=== PATIENT | male | born 1980 | race Caucasian/White ===

== ENCOUNTER 2021-03-18 09:12 | Emergency (ER) | payer BC ==
[~2021-03-18] VITALS: Ht 198.1 cm; Wt 109.1 kg
[2021-03-18 09:24] VITALS: TEMP 98.7
[2021-03-18 11:20] VITALS: BP 141/92; PULSE 83
[2021-03-18] MEDS ORDERED: ZOFRAN ODT4 MG PO (11:20)
== END 2021-03-18 11:25 | disposition home or self-care (01) ==
LOC: COL.ER 09:12 → EDBD 09:12 → COL.ER 11:25
DX: U07.1 COVID-19 (principal)
CPT/HCPCS: J1885

== ENCOUNTER → 2021-07-20 | Outpatient (CLI) | payer BC ==
[~2021-07-20] MED LIST: ZOFRAN ODT4 MG PO
[2021-07-20 17:46] LABS: MEAN CELL VOLUME 91 fl (80.0-100.0); MEAN CORPUSCULAR HGB CONC 31 g/dl (33.0-37.0); MEAN PLATELET VOLUME 10.3 fl (7.4-10.4); PLATELET COUNT 569 K/mm3 (130-400); RED BLOOD COUNT 2.83 M/mm3 (4.20-5.60); REDCELL DISTRIBUTION WIDTH-CV 16.3 % (11.5-14.5)
[2021-07-20 17:50] LABS: HEMATOCRIT 25.6 % (42.0-52.0); HEMOGLOBIN 7.9 g/dl (13.5-18.0); MEAN CORPUSCULAR HEMOGLOBIN 28 pg (27-31)
[2021-07-20 17:59] LABS: ALBUMIN 1.6 gm/dL (3.5-5.0); BILIRUBIN,TOTAL 2.8 mg/dL (0.2-1.2); C-REACTIVE PROTEIN 18.27 mg/dL (0.00-0.50); CALCIUM 7.7 mg/dL (8.4-10.2); CREATININE, serum 0.62 mg/dL (0.72-1.25); POTASSIUM 4.9 mmol/L (3.5-4.5); TOTAL PROTEIN 6.9 gm/dL (6.2-8.1)
[2021-07-20 18:22] LABS: BAND 10 % (0-10); EOSINOPHIL 1 % (0-4); LYMPHOCYTE 4 % (20.0-51.0); NEUTROPHILS 85 % (42.0-75.2)
[2021-07-20 18:23] LABS: HYPOCHROMIA 3+; PLATELET ESTIMATE INCREASED (NORMAL); TOXIC GRANULATION PRESENT
[2021-07-20 18:34] LABS: ERYTHROCYTE SEDIMENTATION RATE > 140 mm/hr (0-15)
== END ==
LOC: ZCOL.LAB 17:08
PROVIDERS: Family Medicine
DX: K85.90 Acute pancreatitis without necrosis or infection, unspecified (principal)

== ENCOUNTER → 2021-10-08 | Outpatient (CLI) | payer BC | LOC: COL.RAD 06:49 | DX: K31.5 Obstruction of duodenum (principal) ==

== ENCOUNTER 2022-01-07 09:31 | Emergency (ER) | payer BC ==
[~2022-01-07] VITALS: Ht 198.1 cm; Wt 93.6 kg
[2022-01-07 09:43] VITALS: TEMP 97.8
[2022-01-07 10:19] LABS: BASO % 0.1 % (0.0-2.0); EOS # 0.1 K/mm3 (0.0-0.7); EOS % 0.8 % (0.0-4.0); GRAN # 10.8 K/mm3 (1.4-6.5); GRAN % 85.5 % (42.2-75.2); HEMATOCRIT 41.6 % (42.0-52.0); HEMOGLOBIN 14.3 g/dl (13.5-18.0); LYMPH # 0.8 K/mm3 (1.2-3.4); LYMPH % 6.4 % (20.0-51.0); MEAN CELL VOLUME 90 fl (80.0-100.0); MEAN CORPUSCULAR HEMOGLOBIN 31 pg (27-31); MEAN CORPUSCULAR HGB CONC 34 g/dl (33.0-37.0); MEAN PLATELET VOLUME 9.7 fl (7.4-10.4); MONO # 0.9 K/mm3 (0.1-0.6); MONO % 6.8 % (1.7-9.3); PLATELET COUNT 157 K/mm3 (130-400); REDCELL DISTRIBUTION WIDTH-CV 12.6 % (11.5-14.5)
[2022-01-07 10:43] LABS: ALBUMIN 3.6 gm/dL (3.5-5.0); BILIRUBIN,TOTAL 3.4 mg/dL (0.2-1.2); C-REACTIVE PROTEIN 21.13 mg/dL (0.00-0.50); CALCIUM 9.4 mg/dL (8.4-10.2); CREATININE, serum 0.73 mg/dL (0.72-1.25); POTASSIUM 4.2 mmol/L (3.5-4.5); TOTAL PROTEIN 7.9 gm/dL (6.2-8.1)
[2022-01-07] MEDS ORDERED: ROXICODONE 55 MG/TAB PO (11:08)
[2022-01-07] MEDS ORDERED: NEURONTIN100 MG/CAP PO (11:09)
[2022-01-07] MEDS ORDERED: CELEBREX 200MG200 MG PO (11:09)
[2022-01-07 11:12] LABS: COLLECTION METHOD CLEAN CATCH
[2022-01-07 11:21] LABS: MUCOUS Present (NOT PRESENT); PH 7 (5-8); SQUAMOUS EPITHELIAL None Seen /hpf (0-10); URINE APPEARANCE Clear (CLEAR/HAZY); URINE BACTERIA None Seen /hpf (NONE SEEN); URINE BILIRUBIN Negative (NEGATIVE); URINE BLOOD Negative (NEGATIVE); URINE COLOR Amber (YELLOW); URINE GLUCOSE Negative (NEGATIVE); URINE KETONE Trace (NEGATIVE); URINE LEUKOCYTE ESTERASE Negative (NEGATIVE); URINE NITRATE Negative (NEGATIVE); URINE PROTEIN(semi-quant) Negative (NEGATIVE); URINE RBC 0-2 /hpf (0-2); URINE UROBILINOGEN >=4.0 (NEGATIVE)
[2022-01-07 14:09] VITALS: BP 135/83; PULSE 98
== END 2022-01-07 14:46 | disposition short-term general hospital (02) ==
LOC: COL.ER 09:31
PROVIDERS: Emergency Medicine
DX: K52.9 Noninfective gastroenteritis and colitis, unspecified (principal); K86.3 Pseudocyst of pancreas; R00.0 Tachycardia, unspecified; F17.200 Nicotine dependence, unspecified, uncomplicated; Z20.822 Contact with and (suspected) exposure to COVID-19; Z90.49 Acquired absence of other specified parts of digestive tract
CPT/HCPCS: J1170; J2543; J3010; Q9967

== ENCOUNTER → 2023-05-04 | Outpatient (CLI) | payer OTHER ==
[~2023-05-04] MED LIST changes: +AMOXICILLIN 8751 TAB PO; +CELEBREX 200MG200 MG PO; +NEURONTIN100 MG/CAP PO; +NORCO 325 MG-51 TAB PO; +ROXICODONE 55 MG/TAB PO
[2023-05-04 15:45] LABS: HEMATOCRIT 46.1 % (42.0-52.0); HEMOGLOBIN 16.4 g/dl (13.5-18.0); MEAN CELL VOLUME 86 fl (80.0-100.0); MEAN CORPUSCULAR HEMOGLOBIN 31 pg (27-31); MEAN CORPUSCULAR HGB CONC 36 g/dl (33.0-37.0); MEAN PLATELET VOLUME 9.6 fl (7.4-10.4); PLATELET COUNT 191 K/mm3 (130-400); RED BLOOD COUNT 5.35 M/mm3 (4.20-5.60); REDCELL DISTRIBUTION WIDTH-CV 11.9 % (11.5-14.5)
[2023-05-04 16:09] LABS: ALBUMIN 4.3 gm/dL (3.5-5.0); BILIRUBIN,TOTAL 3.2 mg/dL (0.2-1.2); CALCIUM 9.7 mg/dL (8.4-10.2); CREATININE, serum 0.91 mg/dL (0.72-1.25); POTASSIUM 4.6 mmol/L (3.5-4.5); TOTAL PROTEIN 7.7 gm/dL (6.2-8.1)
== END ==
LOC: COL.LAB 15:27
PROVIDERS: Surgery
DX: K80.10 Calculus of gallbladder with chronic cholecystitis without obstruction (principal)